=== PATIENT | male | born 1990 | race Caucasian/White ===

== ENCOUNTER → 2018-08-02 | Outpatient (CLI) | payer OTHER ==
--- NOTE | 2018-08-02 10:22 | REP ---
Clinical: Cough . Comparison: None . Technique: PA and lateral. Findings: The mediastinum and cardiac silhouette are normal. The lung bowden are clear and without acute consolidation, effusion, or pneumothorax. The skeletal structures are intact and normal. Impression: 1. No acute cardiopulmonary process. Electronically Signed by Tucker Chandler MD 08/02/2018 10:13 A
== END ==
LOC: M LRY 09:41
PROVIDERS: ATTEND Nurse Practitioner Family
DX: R05 Cough (principal)